=== PATIENT | male | born 1975 | race Caucasian/White ===

== ENCOUNTER 2017-01-18 13:38 | Emergency (ER) | payer OTHER ==
--- NOTE | 2017-01-18 14:17 | CT ---
HEAD CT NONCONTRAST: INDICATION: Right side hemideficit. FINDINGS: There is an abnormal hypoattenuation of the left basal ganglia. There is no intracranial hemorrhage, mass effect, midline shift, or ventriculomegaly. There is decreased pneumatization of bilateral mas toid air cells inferiorly. IMPRESSION: Age-indeterminate hypoattenuation of the left basal ganglia could relate to a recent area of ischemia . Recommend dedicated brain MRI. POS: BR[facility]
[2017-01-18 14:27] LABS: Bilirubin Negative (Negative); Blood, Urine Negative (Negative); Glucose, Urine (Dipstick) Negative (Negative); Ketone, Urine Negative (Negative); Nitrite Negative (Negative); Protein, Urine (Dipstick) Negative (Neg-Trace)
[2017-01-18 14:31] LABS: Bacteria/HPF None Seen HPF (None Seen); Hyaline Casts/LPF NONE SEEN LPF (0-3 Hyaline); RBC/HPF None Seen HPF (0-3)
[2017-01-18 14:58] LABS: #Basophils 0.1 thou/uL (0.0-0.2); #Eosinphils 0.1 thou/uL (0.0-0.7); #Lymphocytes 2.9 thou/uL (1.20-3.40); #Monocytes 0.8 thou/uL (0.11-0.59); #Neutrophils 4.8 thou/uL (1.40-6.50); %Basophils 0.6 % (0.0-1.0); %Eosinophils 0.6 % (0.0-10.0); %Lymphocytes 33.5 % (21.0-51.0); %Monocytes 8.8 % (0.0-10.0); Hematocrit 45.1 % (42.0-52.0); Mean Platelet Volume 10.9 fL (7.4-10.4); PTT 27.5 SEC (22.9-36.1); Prothrombin Time 14.3 SEC (12.0-14.7); Red Blood Cell (RBC) Count 4.66 mill/uL (4.70-6.10); White Blood Cell (WBC) Count 8.5 thou/uL (4.8-10.8)
[2017-01-18 15:11] LABS: ALT (SGPT) 47 U/L (8-55); AST (SGOT) 38 U/L (5-34); Alkaline Phosphatase 119 U/L (40-150); Anion Gap 9 mmol/L (10-20); BUN (Urea Nitrogen) 12 mg/dL (8.9-20.6); Bilirubin, Total 0.5 mg/dL (0.2-1.2); CK (CPK) 147 U/L (30-200); Calc. Creatinine Clearance 0 mL/min (70-130); Calcium 9.4 mg/dL (7.8-10.44); Carbon Dioxide 27 mmol/L (22-29); Chloride 104 mmol/L (98-107); Estimated GFR-MDRD Greater than 90; Globulin 4.1 g/dL (2.4-3.5); Magnesium 1.7 mg/dL (1.6-2.6); Protein, Total 7.9 g/dL (6.0-8.3)
[2017-01-18 15:15] LABS: Troponin I Less than 0.010 ng/mL (< 0.028)
[2017-01-18 15:23] LABS: Amphetamine Not Detected (NotDetected); Methadone Not Detected (NotDetected); Methamphetamine Not Detected (NotDetected)
--- NOTE | 2017-02-12 12:58 | EKG ---
Test Reason : Blood Pressure : / mmHG Vent. Rate : 069 BPM Atrial Rate : 069 BPM P-R Int : 212 ms QRS Dur : 078 ms QT Int : 364 ms P-R-T Axes : 035 029 034 degrees QTc Int : 390 ms Sinus rhythm with 1st degree A-V block Low voltage QRS Cannot rule out Anterior infarct , age undetermined Abnormal ECG Confirmed by CHASITY AVALOS ([id number]), fashion editor JOSE WILLAMS ([id number]) on 02/12/2017 12:58:25 PM Referred By: ROBBIE Confirmed By:CAHSITY AVALOS
== END 2017-01-18 19:31 ==
LOC: EEVIPCON 13:38 → ERS 13:38
DX: I63.9 Cerebral infarction, unspecified (principal)
CPT/HCPCS: 36415; 70450; 80053; 80306; 81003; 81015; 82553; 83735; 84484; 85025; 85610; 85730; 93005